=== PATIENT | female | born 1945 | race African-American/Black ===

== ENCOUNTER 2024-12-31 19:05 | Inpatient (IN) | payer MEDICARE, MEDICAID ==
[~2024-12-31] VITALS: Ht 165.1 cm; Wt 95.7 kg
[2024-12-31] MEDS: SODIUM CHLORIDE 0.9% 1,000 ML IV ONE (18:45)
[~2024-12-31 19:05] MED LIST: AMLO5TAB88 PO; ASPI-1160 PO; ATOR10TA69 PO; CLON0.1T PO; CLOP-31 PO; DIPH-909 PO; DORZ10DR8 EACHEYE; FAMO20TA8 MT; FURO20TA4 MT; HYDR-4001 MT; INSLIS SUBCUT; IPRA3AMP9 HHN; IPRA3AMP9 NEB; LACT10SO7 PO; LIP40 PO; LYR25 PO; METO-396 PO; MULT-1146 PO; MUPI15CR11 TP; P20 PO; POLY17PO43 MT; PULM25 NEB; SODI100047 MT
[2024-12-31 21:35] LABS: HEMATOCRIT. 35.1 % (36.0-48.0); HEMOGLOBIN. 10.8 g/dL (12.0-16.0); MEAN CORPUSCULAR HEMOGLOBIN 30.3 pg (28.0-32.0); MEAN CORPUSCULAR HGB CONC 30.8 g/dL (31.0-37.0); MEAN CORPUSCULAR VOLUME 98.2 fL (81.0-99.0); MEAN PLATELET VOLUME 9.8 fl (7.4-10.4); PLATELET 199 x1000/uL (130-400); RED BLOOD CELL COUNT 3.57 mill/uL (4.2-5.4); RED CELL DISTRIBUTION WIDTH 13.4 % (11.6-14.6); WHITE BLOOD COUNT 15.9 x1000/uL (4.5-11.0)
[2024-12-31 21:43] LABS: CHLORIDE 90 mEq/L (98-107); POTASSIUM 4.3 mEq/L (3.5-5.1); SODIUM 139 mEq/L (136-145)
[2024-12-31 21:44] LABS: CALCIUM 9.4 mg/dL (8.7-10.4)
[2024-12-31 21:45] LABS: DIFFERENTIAL COMMENT 1
[2024-12-31 21:49] LABS: GLUCOSE 111 mg/dL (70-105); TROPONIN I HIGH SENSITIVITY 19 ng/L (3.0-34); UREA NITROGEN BLOOD 17 mg/dL (9-23)
[2024-12-31 21:51] LABS: ALANINE AMINOTRANSFERASE 24 IU/L (10-49); ALBUMIN 3.7 g/dL (3.2-4.8); ASPARTATE AMINOTRANSFERASE 14 IU/L (<34); BILIRUBIN DIRECT 0.1 mg/dL (<=3.0); BILIRUBIN TOTAL 0.3 mg/dL (0.1-1.0); PROTEIN TOTAL 6.9 g/dL (6.0-8.3)
[2024-12-31 21:53] LABS: CARBON DIOXIDE > 40 mEq/L (21-32); CREATININE 0.5 mg/dL (0.6-1.0)
[2024-12-31] MEDS: CEFTRIAXONE 1GM/50ML 50 ML IV NR (22:05)
[2024-12-31] MEDS: AZITHROMYCIN 500MG/250ML 250 ML IV NR (22:45)
[2024-12-31 23:24] LABS: PLATELET ESTIMATE NORMAL
[2024-12-31] MEDS ORDERED: GUAIFENESIN 200MG/10ML SUGAR FREE UDC PO PRN (23:30)
[2024-12-31] MEDS ORDERED: ONDANSETRON HCL 4MG/2ML INJ IV PRN (23:30)
[2024-12-31] MEDS ORDERED: MAGNESIUM/ALUMINUM HYDROXIDE/SIMETHICONE 30ML UDC PO PRN (23:30)
[2024-12-31] MEDS ORDERED: ACETAMINOPHEN 325MG TABLET PO PRN ×2 (23:30)
[2024-12-31] MEDS ORDERED: HYDRALAZINE 20MG/ML VIAL IV PRN (23:45)
[2024-12-31] MEDS ORDERED: CEFTRIAXONE 1GM/50ML 50 ML IV SCH (23:45)
[2024-12-31] MEDS ORDERED: AZITHROMYCIN 500MG/250ML 250 ML IV SCH (23:45)
[2025-01-01] VITALS (12 sets, daily range): BP systolic 123–150; BP diastolic 89–113; PULSE 85–148; RESP 17–31; TEMP 36.5; O2SAT 95–98
[2025-01-01] MEDS: IPRATROPIUM/ALBUTEROL 0.5-3(2.5)MG/3ML NEB HHN SCH (00:15)
[2025-01-01] MEDS: SODIUM CHLORIDE 0.9% 1,000 ML IV SCH (01:03)
[2025-01-01 01:06] LABS: TROPONIN I HIGH SENSITIVITY 21 ng/L (3.0-34)
[2025-01-01 01:16] LABS: AMMONIA < 17 uMol/L (<32)
[2025-01-01 01:33] LABS: INR 1.1; PROTHROMBIN TIME 11.4 sec (9.6-11.0)
[2025-01-01 01:34] LABS: BG BASE EXCESS 7.1 mmol/L (-2.0-3.0); BG CARBOXYHEMOGLOBIN 0.7 % (0.5-1.5); BG HCO3 ACT 38.2 mmol/L (21.0-28.0); BG METHEMOGLOBIN 0.2 % (0.5-1.5); BG OXYGEN SATURATION 93.9 % (94.0-98.0); BG OXYHEMOGLOBIN 93.1 % (94.0-98.0); BG PCO2 100.4 mmHg (32.0-45.0); BG PH 7.198 (7.350-7.450); BG PO2 76.9 mmHg (83.0-108.0); BG SAMPLE SITE RIGHT RADIAL; BG TOTAL HEMOGLOBIN 11.7 g/dL (12.0-16.0); BG VENT MODE NASAL CANNULA
[2025-01-01 04:55] LABS: BG BASE EXCESS 12.2 mmol/L (-2.0-3.0); BG CARBOXYHEMOGLOBIN 0.7 % (0.5-1.5); BG DEOXYHEMOGLOBIN 3.9 % (0.0-5.0); BG FRACTION INSPIRED OXYGEN 40; BG HCO3 ACT 40.9 mmol/L (21.0-28.0); BG METHEMOGLOBIN 0.1 % (0.5-1.5); BG OXYGEN SATURATION 96.1 % (94.0-98.0); BG OXYHEMOGLOBIN 95.3 % (94.0-98.0); BG PCO2 78.4 mmHg (32.0-45.0); BG PH 7.335 (7.350-7.450); BG PO2 80.1 mmHg (83.0-108.0); BG SAMPLE SITE LEFT RADIAL; BG TOTAL HEMOGLOBIN 11.5 g/dL (12.0-16.0); BG VENT MODE MASK - BIPAP
[2025-01-01] MEDS: METHYLPREDNISOLONE SOD SUCC 40MG/ML (ACT-O-VIAL) IV SCH (05:31)
[2025-01-01 06:56] LABS: HEMATOCRIT. 35.6 % (36.0-48.0); HEMOGLOBIN. 11.1 g/dL (12.0-16.0); MEAN CORPUSCULAR HEMOGLOBIN 30.5 pg (28.0-32.0); MEAN CORPUSCULAR HGB CONC 31.1 g/dL (31.0-37.0); MEAN CORPUSCULAR VOLUME 98.2 fL (81.0-99.0); MEAN PLATELET VOLUME 9.8 fl (7.4-10.4); PLATELET 194 x1000/uL (130-400); RED BLOOD CELL COUNT 3.63 mill/uL (4.2-5.4); RED CELL DISTRIBUTION WIDTH 13.2 % (11.6-14.6); WHITE BLOOD COUNT 14.3 x1000/uL (4.5-11.0)
[2025-01-01 07:06] LABS: DIFFERENTIAL COMMENT 1
[2025-01-01 07:19] LABS: CHLORIDE 92 mEq/L (98-107); POTASSIUM 3.9 mEq/L (3.5-5.1); SODIUM 137 mEq/L (136-145); TROPONIN I HIGH SENSITIVITY 19 ng/L (3.0-34)
[2025-01-01 07:20] LABS: CALCIUM 9.2 mg/dL (8.7-10.4); FOLIC ACID (FOLATE) SERUM 3.75 ng/mL (>5.38); VITAMIN B12 SERUM 624 pg/mL (211-911)
[2025-01-01 07:23] LABS: THYROID STIMULATING HORMONE 0.35 uIU/mL (0.55-4.78)
[2025-01-01 07:24] LABS: IRON 53 ug/dL (50-170)
[2025-01-01 07:25] LABS: CREATININE 0.4 mg/dL (0.6-1.0); GLUCOSE 75 mg/dL (70-105); TRIGLYCERIDE 85 mg/dL (0-150); UREA NITROGEN BLOOD 17 mg/dL (9-23)
[2025-01-01 07:26] LABS: LDL CHOLESTEROL 73 mg/dL (5-100)
[2025-01-01 07:27] LABS: CHOLESTEROL 150 mg/dL (<200); CREATINE KINASE 46 IU/L (34-145); HDL CHOLESTEROL 53 mg/dL (>65); TOTAL IRON BINDING CAPACITY 256 ug/dl (250-425)
[2025-01-01 08:17] LABS: CARBON DIOXIDE > 40 mEq/L (21-32)
[2025-01-01] MEDS ORDERED: IPRATROPIUM BROMIDE (0.02%) 0.5MG/2.5ML NEB HHN PRN (08:30)
[2025-01-01] MEDS ORDERED: DEXTROSE 50% WATER 50ML SYRINGE IV PRN (08:30)
[2025-01-01] MEDS ORDERED: LACTULOSE 20G/30ML UDC PO PRN (08:30)
[2025-01-01] MEDS: ENOXAPARIN 40MG/0.4ML SYR SUBCUT SCH (09:00)
[2025-01-01] MEDS: FOLIC ACID/VITAMIN B COMP W-C TABLET PO SCH (09:00)
[2025-01-01] MEDS: METOPROLOL SUCCINATE 50MG ER TABLET PO SCH (09:00)
[2025-01-01] MEDS: FUROSEMIDE 20MG TABLET PO SCH (09:00)
[2025-01-01] MEDS: BLOOD SUGAR DIAGNOSTIC STRIP TEST SCH (09:00)
[2025-01-01] MEDS: ASPIRIN 81MG EC TABLET PO SCH (09:00)
[2025-01-01] MEDS: AMLODIPINE 5MG TABLET PO SCH (09:00)
[2025-01-01 10:48] LABS: BG BASE EXCESS 13.2 mmol/L (-2.0-3.0); BG CARBOXYHEMOGLOBIN 0.6 % (0.5-1.5); BG DEOXYHEMOGLOBIN 3.7 % (0.0-5.0); BG FRACTION INSPIRED OXYGEN 40; BG HCO3 ACT 41.3 mmol/L (21.0-28.0); BG OXYGEN SATURATION 96.3 % (94.0-98.0); BG OXYHEMOGLOBIN 95.7 % (94.0-98.0); BG PH 7.365 (7.350-7.450); BG SAMPLE SITE RIGHT RADIAL; BG TOTAL HEMOGLOBIN 11.2 g/dL (12.0-16.0); BG VENT MODE MASK - BIPAP
[2025-01-01] MEDS ORDERED: INSULIN LISPRO 100 UNITS/ML SUBCUT SCH (13:20)
[2025-01-01 13:26] LABS: PLATELET ESTIMATE NORMAL
[2025-01-01] MEDS: IPRATROPIUM BROMIDE (0.02%) 0.5MG/2.5ML NEB HHN SCH (14:16)
[2025-01-01 15:44] LABS: CREATINE KINASE 43 IU/L (34-145)
[2025-01-01 16:13] LABS: LACTATE DEHYDROGENASE 211 IU/L (120-246)
[2025-01-01 20:03] LABS: BG BASE EXCESS 8.5 mmol/L (-2.0-3.0); BG CARBOXYHEMOGLOBIN 0.6 % (0.5-1.5); BG DEOXYHEMOGLOBIN 2.8 % (0.0-5.0); BG FRACTION INSPIRED OXYGEN 40; BG HCO3 ACT 35.8 mmol/L (21.0-28.0); BG METHEMOGLOBIN 0.3 % (0.5-1.5); BG OXYGEN SATURATION 97.2 % (94.0-98.0); BG OXYHEMOGLOBIN 96.3 % (94.0-98.0); BG PCO2 63.5 mmHg (32.0-45.0); BG PH 7.369 (7.350-7.450); BG PO2 89.6 mmHg (83.0-108.0); BG SAMPLE SITE RIGHT BRACHIAL; BG TOTAL HEMOGLOBIN 11.8 g/dL (12.0-16.0); BG VENT MODE MASK - BIPAP
[2025-01-01] MEDS: FUROSEMIDE 40MG/4ML VIAL IV NR (21:52)
[2025-01-01] MEDS: DILTIAZEM HCL 5MG/ML 5ML VIAL IV NR (21:56)
[2025-01-01] MEDS: ATORVASTATIN CALCIUM 40MG TABLET PO SCH (22:11)
[2025-01-01] MEDS: CEFTRIAXONE 1GM/50ML 50 ML IV SCH (22:11)
[2025-01-01] MEDS: AZITHROMYCIN 500MG/250ML 250 ML IV SCH (22:12)
[2025-01-01] MEDS: METHYLPREDNISOLONE SOD SUCC 125MG/2ML (ACT-O-VIAL) IV SCH (22:26)
[2025-01-02] VITALS (16 sets, daily range): BP systolic 103–158; BP diastolic 44–135; PULSE 80–142; RESP 15–29; TEMP 36.1–36.7; O2SAT 89–100
[2025-01-02] MEDS ORDERED: CRAN250C MT (04:37)
[2025-01-02] MEDS ORDERED: PROT20 MT (04:37)
[2025-01-02] MEDS ORDERED: AMIN30LI2 PO (04:37)
[2025-01-02] MEDS ORDERED: TOPUD MT (04:37)
[2025-01-02] MEDS ORDERED: ASCO-339 MT (04:37)
[2025-01-02] MEDS ORDERED: MOM PO (04:37)
[2025-01-02] MEDS ORDERED: VITA1CAP PO (04:37)
[2025-01-02] MEDS ORDERED: DOCU100T MT (04:37)
[2025-01-02] MEDS ORDERED: ENOX40DI8 SQ (04:37)
[2025-01-02] MEDS ORDERED: MAG30ORA (04:37)
[2025-01-02] MEDS ORDERED: LACT1CAP68 MT (04:37)
[2025-01-02 07:32] LABS: HEMATOCRIT 34.5 % (36.0-48.0); HEMOGLOBIN 11.1 g/dL (12.0-16.0); MEAN CORPUSCULAR HGB CONC 32.3 g/dL (31.0-37.0); MEAN CORPUSCULAR VOLUME 95.9 fL (81.0-99.0); PLATELET 205 x1000/uL (130-400); RED CELL DISTRIBUTION WIDTH 13.4 % (11.6-14.6); WHITE BLOOD COUNT 9.9 x1000/uL (4.5-11.0)
[2025-01-02 07:41] LABS: CHLORIDE 91 mEq/L (98-107); POTASSIUM 4.5 mEq/L (3.5-5.1); SODIUM 138 mEq/L (136-145)
[2025-01-02 07:42] LABS: CALCIUM 9.2 mg/dL (8.7-10.4)
[2025-01-02 07:46] LABS: CREATININE 0.3 mg/dL (0.6-1.0); GLUCOSE 118 mg/dL (70-105)
[2025-01-02 07:47] LABS: UREA NITROGEN BLOOD 16 mg/dL (9-23)
[2025-01-02 07:49] LABS: PHOSPHORUS 2.5 mg/dL (2.5-4.9)
[2025-01-02 07:58] LABS: CARBON DIOXIDE > 40 mEq/L (21-32)
[2025-01-02] MEDS: FUROSEMIDE 40MG/4ML VIAL IVP SCH (09:10)
[2025-01-02] MEDS: AZITHROMYCIN 500MG/250ML 250 ML IV SCH (21:31)
[2025-01-02] MEDS: METOPROLOL SUCCINATE 50MG ER TABLET PO SCH (21:31)
[2025-01-02] MEDS: SACUBITRIL/VALSARTAN 24MG/26MG TABLET PO SCH (21:39)
[2025-01-02] MEDS: DEXT 5%/0.45% NACL 1000ML 1,000 ML IV SCH (21:41)
[2025-01-03] VITALS (16 sets, daily range): BP systolic 89–137; BP diastolic 45–116; PULSE 66–115; RESP 14–26; TEMP 36.1–36.6; O2SAT 93–99
[2025-01-03 07:27] LABS: HEMATOCRIT 33.5 % (36.0-48.0); HEMOGLOBIN 10.5 g/dL (12.0-16.0); MEAN CORPUSCULAR HEMOGLOBIN 30.8 pg (28.0-32.0); MEAN CORPUSCULAR HGB CONC 31.3 g/dL (31.0-37.0); MEAN CORPUSCULAR VOLUME 98.4 fL (81.0-99.0); PLATELET 196 x1000/uL (130-400); RED CELL DISTRIBUTION WIDTH 13.6 % (11.6-14.6); WHITE BLOOD COUNT 7.9 x1000/uL (4.5-11.0)
[2025-01-03 07:35] LABS: CALCIUM 9.2 mg/dL (8.7-10.4); CHLORIDE 93 mEq/L (98-107); POTASSIUM 4.2 mEq/L (3.5-5.1); SODIUM 139 mEq/L (136-145)
[2025-01-03 07:41] LABS: GLUCOSE 133 mg/dL (70-105)
[2025-01-03 07:42] LABS: UREA NITROGEN BLOOD 20 mg/dL (9-23)
[2025-01-03 07:44] LABS: PHOSPHORUS 2.8 mg/dL (2.5-4.9)
[2025-01-03] MEDS: SPIRONOLACTONE 25MG TABLET PO SCH (08:31)
[2025-01-03] MEDS: EMPAGLIFLOZIN 10MG TABLET PO SCH (08:32)
[2025-01-03 09:59] LABS: CARBON DIOXIDE > 40 mEq/L (21-32); CREATININE 0.4 mg/dL (0.6-1.0)
[2025-01-03 15:30] LABS: PROTEIN BODY FLUID 2.2 gm/dL
[2025-01-03] MEDS: LACTULOSE 20G/30ML UDC PO SCH (19:12)
[2025-01-03] MEDS: MIRTAZAPINE 15MG TABLET PO SCH (21:04)
[2025-01-03 23:45] LABS: BG BASE EXCESS 14.9 mmol/L (-2.0-3.0); BG CARBOXYHEMOGLOBIN 0.6 % (0.5-1.5); BG DEOXYHEMOGLOBIN 5.5 % (0.0-5.0); BG FRACTION INSPIRED OXYGEN 28; BG HCO3 ACT 45.1 mmol/L (21.0-28.0); BG METHEMOGLOBIN 0.3 % (0.5-1.5); BG OXYGEN SATURATION 94.5 % (94.0-98.0); BG OXYHEMOGLOBIN 93.6 % (94.0-98.0); BG PCO2 91.8 mmHg (32.0-45.0); BG PH 7.309 (7.350-7.450); BG PO2 69.8 mmHg (83.0-108.0); BG SAMPLE SITE RIGHT RADIAL; BG TOTAL HEMOGLOBIN 12.3 g/dL (12.0-16.0); BG VENT MODE NASAL CANNULA
[2025-01-04] VITALS (98 sets, daily range): BP systolic 61–153; BP diastolic 34–136; PULSE 76–134; RESP 12–25; TEMP 36.1–36.6; O2SAT 90–100
[2025-01-04 00:05] LABS: HEMATOCRIT. 40.6 % (36.0-48.0); HEMOGLOBIN. 12.4 g/dL (12.0-16.0); MEAN CORPUSCULAR HEMOGLOBIN 30.9 pg (28.0-32.0); MEAN CORPUSCULAR HGB CONC 30.5 g/dL (31.0-37.0); MEAN CORPUSCULAR VOLUME 101.3 fL (81.0-99.0); MEAN PLATELET VOLUME 9.6 fl (7.4-10.4); PLATELET 183 x1000/uL (130-400); RED BLOOD CELL COUNT 4.01 mill/uL (4.2-5.4); RED CELL DISTRIBUTION WIDTH 13.8 % (11.6-14.6); WHITE BLOOD COUNT 9.7 x1000/uL (4.5-11.0)
[2025-01-04 00:15] LABS: CARBON DIOXIDE 37 mEq/L (21-32); CHLORIDE 93 mEq/L (98-107); SODIUM 136 mEq/L (136-145)
[2025-01-04 00:16] LABS: CALCIUM 9.1 mg/dL (8.7-10.4)
[2025-01-04 00:20] LABS: DIFFERENTIAL COMMENT 1
[2025-01-04 00:21] LABS: CREATININE 0.5 mg/dL (0.6-1.0); GLUCOSE 135 mg/dL (70-105); TRIGLYCERIDE 98 mg/dL (0-150); UREA NITROGEN BLOOD 19 mg/dL (9-23)
[2025-01-04 00:22] LABS: ALANINE AMINOTRANSFERASE 24 IU/L (10-49); ASPARTATE AMINOTRANSFERASE 16 IU/L (<34); LDL CHOLESTEROL 87 mg/dL (5-100)
[2025-01-04 00:23] LABS: ALBUMIN 3.4 g/dL (3.2-4.8); BILIRUBIN TOTAL 0.4 mg/dL (0.1-1.0); CHOLESTEROL 163 mg/dL (<200); CREATINE KINASE 50 IU/L (34-145); HDL CHOLESTEROL 47 mg/dL (>65); PHOSPHORUS 3.5 mg/dL (2.5-4.9); PROTEIN TOTAL 6.4 g/dL (6.0-8.3)
[2025-01-04 00:59] LABS: BODY FLUID WBC 188 /cu mm (0-200)
[2025-01-04 01:00] LABS: BODY FLUID MONOCYTES 2 %; BODY FLUID RBC 158000 /cu mm (0-2000)
[2025-01-04 01:41] LABS: PROTHROMBIN TIME 10.9 sec (9.6-11.0)
[2025-01-04] MEDS ORDERED: NOREPINEPHRINE 8MG/250ML PMX 250 ML IV PRN (03:00)
[2025-01-04] MEDS: ALBUMIN HUMAN 25GM/500ML (5%) IV NR (03:47)
[2025-01-04] MEDS: SODIUM CHLORIDE 0.9% 1,000 ML IV SCH (03:48)
[2025-01-04] MEDS: CLOPIDOGREL 75MG TABLET PO SCH (03:49)
[2025-01-04] MEDS: ASPIRIN 81MG TABLET PO SCH (03:57)
[2025-01-04] MEDS ORDERED: IOHEXOL-350 100 ML BOTTLE ONE (05:55)
[2025-01-04 06:13] LABS: HEMATOCRIT 32.4 % (36.0-48.0); HEMOGLOBIN 10.1 g/dL (12.0-16.0); MEAN CORPUSCULAR HEMOGLOBIN 31.3 pg (28.0-32.0); MEAN CORPUSCULAR HGB CONC 31.2 g/dL (31.0-37.0); PLATELET 160 x1000/uL (130-400); RED BLOOD CELL COUNT 3.24 mill/uL (4.2-5.4); RED CELL DISTRIBUTION WIDTH 13.7 % (11.6-14.6); WHITE BLOOD COUNT 10.7 x1000/uL (4.5-11.0)
[2025-01-04 06:24] LABS: AMMONIA 40 uMol/L (<32)
[2025-01-04 06:26] LABS: CALCIUM 8.5 mg/dL (8.7-10.4); CHLORIDE 91 mEq/L (98-107); POTASSIUM 4.2 mEq/L (3.5-5.1); SODIUM 138 mEq/L (136-145)
[2025-01-04 06:31] LABS: CREATININE 0.4 mg/dL (0.6-1.0); GLUCOSE 140 mg/dL (70-105)
[2025-01-04 06:32] LABS: UREA NITROGEN BLOOD 25 mg/dL (9-23)
[2025-01-04 06:33] LABS: PHOSPHORUS 2.7 mg/dL (2.5-4.9)
[2025-01-04 06:44] LABS: CARBON DIOXIDE > 40 mEq/L (21-32)
[2025-01-04] MEDS: MAGNESIUM 2 G PREMIX 50 ML IV NR (08:50)
[2025-01-04] MEDS: LACTULOSE 20G/30ML UDC PO SCH (08:51)
[2025-01-04 09:58] LABS: BG BASE EXCESS 13.2 mmol/L (-2.0-3.0); BG CARBOXYHEMOGLOBIN 0.5 % (0.5-1.5); BG DEOXYHEMOGLOBIN 2.2 % (0.0-5.0); BG FRACTION INSPIRED OXYGEN 40; BG HCO3 ACT 42.8 mmol/L (21.0-28.0); BG METHEMOGLOBIN 0.3 % (0.5-1.5); BG OXYGEN SATURATION 97.8 % (94.0-98.0); BG PCO2 88.6 mmHg (32.0-45.0); BG PH 7.302 (7.350-7.450); BG PO2 99.7 mmHg (83.0-108.0); BG SAMPLE SITE RIGHT RADIAL; BG TOTAL HEMOGLOBIN 11.2 g/dL (12.0-16.0); BG TOTAL RESPIRATORY RATE 20 b/min; BG VENT MODE MASK - BIPAP
[2025-01-04] MEDS: MULTIVITAMINS,THER W-MINERALS TABLET PO SCH (10:30)
[2025-01-04] MEDS: ZINC SULFATE 220 MG ( 50 ) CAPSULE PO SCH (10:30)
[2025-01-04] MEDS: ASCORBIC ACID 250 MG TABLET PO SCH (10:30)
[2025-01-04] MEDS: ENOXAPARIN 80MG/0.8ML SYR SUBCUT SCH (10:31)
[2025-01-04 11:14] LABS: PLATELET ESTIMATE NORMAL
[2025-01-04] MEDS: PIPERACILLIN/TAZO 3.375G/50ML 50 ML IV SCH (17:29)
[2025-01-04] MEDS: VANCOMYCIN 1.5GM PMX (XELLIA) 300 ML IV NR (17:45)
[2025-01-04 18:48] LABS: BG BASE EXCESS 10.1 mmol/L (-2.0-3.0); BG CARBOXYHEMOGLOBIN 0.4 % (0.5-1.5); BG DEOXYHEMOGLOBIN 1.1 % (0.0-5.0); BG FRACTION INSPIRED OXYGEN 40; BG HCO3 ACT 38.9 mmol/L (21.0-28.0); BG METHEMOGLOBIN 0.3 % (0.5-1.5); BG OXYGEN SATURATION 98.9 % (94.0-98.0); BG OXYHEMOGLOBIN 98.2 % (94.0-98.0); BG PCO2 78.4 mmHg (32.0-45.0); BG PH 7.314 (7.350-7.450); BG PO2 129.8 mmHg (83.0-108.0); BG SAMPLE SITE RIGHT RADIAL; BG TOTAL HEMOGLOBIN 11.7 g/dL (12.0-16.0); BG TOTAL RESPIRATORY RATE 21 b/min; BG VENT MODE MASK - BIPAP
[2025-01-04] MEDS: METOPROLOL SUCCINATE 25MG ER TABLET PO SCH (22:06)
[2025-01-05] VITALS (59 sets, daily range): BP systolic 77–152; BP diastolic 39–131; PULSE 80–114; RESP 11–27; TEMP 36–37.6; O2SAT 96–100
[2025-01-05 05:33] LABS: CHLORIDE 94 mEq/L (98-107); SODIUM 140 mEq/L (136-145)
[2025-01-05 05:34] LABS: CALCIUM 8.6 mg/dL (8.7-10.4)
[2025-01-05 05:38] LABS: HEMATOCRIT. 34.1 % (36.0-48.0); HEMOGLOBIN. 10.4 g/dL (12.0-16.0); MEAN CORPUSCULAR HEMOGLOBIN 30.3 pg (28.0-32.0); MEAN CORPUSCULAR HGB CONC 30.5 g/dL (31.0-37.0); MEAN CORPUSCULAR VOLUME 99.3 fL (81.0-99.0); MEAN PLATELET VOLUME 9.8 fl (7.4-10.4); PLATELET 185 x1000/uL (130-400); RED BLOOD CELL COUNT 3.44 mill/uL (4.2-5.4); RED CELL DISTRIBUTION WIDTH 13.4 % (11.6-14.6); TROPONIN I HIGH SENSITIVITY 18 ng/L (3.0-34); WHITE BLOOD COUNT 11.8 x1000/uL (4.5-11.0)
[2025-01-05 05:39] LABS: CREATININE 0.5 mg/dL (0.6-1.0); GLUCOSE 133 mg/dL (70-105); UREA NITROGEN BLOOD 31 mg/dL (9-23)
[2025-01-05 05:41] LABS: PHOSPHORUS 2.8 mg/dL (2.5-4.9)
[2025-01-05] MEDS ORDERED: DILTIAZEM HCL 5MG/ML 5ML VIAL IV PRN (05:45)
[2025-01-05 06:01] LABS: CARBON DIOXIDE > 40 mEq/L (21-32)
[2025-01-05 07:16] LABS: DIFFERENTIAL COMMENT 1
[2025-01-05 09:12] LABS: PLATELET ESTIMATE NORMAL
[2025-01-05 11:40] LABS: BG BASE EXCESS 11.7 mmol/L (-2.0-3.0); BG CARBOXYHEMOGLOBIN 0.6 % (0.5-1.5); BG DEOXYHEMOGLOBIN 2.4 % (0.0-5.0); BG FRACTION INSPIRED OXYGEN 30; BG HCO3 ACT 40.3 mmol/L (21.0-28.0); BG METHEMOGLOBIN 0.3 % (0.5-1.5); BG OXYGEN SATURATION 97.6 % (94.0-98.0); BG OXYHEMOGLOBIN 96.7 % (94.0-98.0); BG PCO2 76.3 mmHg (32.0-45.0); BG PH 7.341 (7.350-7.450); BG PO2 93.2 mmHg (83.0-108.0); BG SAMPLE SITE LEFT RADIAL; BG TOTAL HEMOGLOBIN 11.9 g/dL (12.0-16.0); BG TOTAL RESPIRATORY RATE 21 b/min; BG VENT MODE MASK - BIPAP
[2025-01-05] MEDS: VANCOMYCIN 1GM PMX (XELLIA) 200 ML IV SCH (16:47)
[2025-01-06] VITALS (23 sets, daily range): BP systolic 69–137; BP diastolic 36–103; PULSE 58–100; RESP 9–34; TEMP 35.6–36.7; O2SAT 97–100
[2025-01-06] MEDS: MIDODRINE HCL 2.5MG TABLET PO NR (03:09)
[2025-01-06 06:59] LABS: HEMATOCRIT 34.8 % (36.0-48.0); HEMOGLOBIN 10.7 g/dL (12.0-16.0); MEAN CORPUSCULAR HEMOGLOBIN 30.7 pg (28.0-32.0); MEAN CORPUSCULAR HGB CONC 30.9 g/dL (31.0-37.0); MEAN CORPUSCULAR VOLUME 99.4 fL (81.0-99.0); PLATELET 167 x1000/uL (130-400); RED CELL DISTRIBUTION WIDTH 13.4 % (11.6-14.6)
[2025-01-06 07:05] LABS: CHLORIDE 96 mEq/L (98-107); POTASSIUM 4.3 mEq/L (3.5-5.1); SODIUM 142 mEq/L (136-145)
[2025-01-06 07:06] LABS: CALCIUM 8.5 mg/dL (8.7-10.4)
[2025-01-06 07:11] LABS: CREATININE 0.8 mg/dL (0.6-1.0); GLUCOSE 118 mg/dL (70-105); UREA NITROGEN BLOOD 41 mg/dL (9-23)
[2025-01-06] MEDS: FUROSEMIDE 40MG/4ML VIAL IVP SCH (09:00)
[2025-01-06 09:24] LABS: CARBON DIOXIDE > 40 mEq/L (21-32)
[2025-01-06] MEDS: MUPIROCIN 2% OINT 15GM NS SCH (10:24)
[2025-01-06] MEDS: SODIUM CHLORIDE 0.9% 1,000 ML IV ONE (10:24)
[2025-01-06 12:25] LABS: INR 1.1; PROTHROMBIN TIME 12.1 sec (9.6-11.0)
[2025-01-06 14:02] LABS: BG BASE EXCESS 9.3 mmol/L (-2.0-3.0); BG CARBOXYHEMOGLOBIN 0.4 % (0.5-1.5); BG FRACTION INSPIRED OXYGEN 28; BG HCO3 ACT 43.1 mmol/L (21.0-28.0); BG METHEMOGLOBIN 0.3 % (0.5-1.5); BG OXYHEMOGLOBIN 98.3 % (94.0-98.0); BG PCO2 141.2 mmHg (32.0-45.0); BG PH 7.103 (7.350-7.450); BG PO2 147.1 mmHg (83.0-108.0); BG SAMPLE SITE RIGHT RADIAL; BG TOTAL HEMOGLOBIN 11.7 g/dL (12.0-16.0); BG VENT MODE NASAL CANNULA
[2025-01-06 17:29] LABS: BG BASE EXCESS 8.2 mmol/L (-2.0-3.0); BG CARBOXYHEMOGLOBIN 0.4 % (0.5-1.5); BG DEOXYHEMOGLOBIN 3.1 % (0.0-5.0); BG FRACTION INSPIRED OXYGEN 30; BG METHEMOGLOBIN 0.3 % (0.5-1.5); BG OXYGEN SATURATION 96.9 % (94.0-98.0); BG OXYHEMOGLOBIN 96.2 % (94.0-98.0); BG PCO2 96.5 mmHg (32.0-45.0); BG PH 7.224 (7.350-7.450); BG PO2 87.8 mmHg (83.0-108.0); BG SAMPLE SITE RIGHT RADIAL; BG TOTAL HEMOGLOBIN 11.8 g/dL (12.0-16.0); BG VENT MODE MASK - BIPAP
[2025-01-06 20:32] LABS: BG BASE EXCESS 6.9 mmol/L (-2.0-3.0); BG CARBOXYHEMOGLOBIN 0.4 % (0.5-1.5); BG FRACTION INSPIRED OXYGEN 30; BG HCO3 ACT 36.3 mmol/L (21.0-28.0); BG METHEMOGLOBIN 0.3 % (0.5-1.5); BG OXYHEMOGLOBIN 96.3 % (94.0-98.0); BG PCO2 82.3 mmHg (32.0-45.0); BG PH 7.262 (7.350-7.450); BG PO2 90.4 mmHg (83.0-108.0); BG SAMPLE SITE RIGHT RADIAL; BG TOTAL HEMOGLOBIN 11.4 g/dL (12.0-16.0); BG VENT MODE MASK - BIPAP
[2025-01-07] VITALS (22 sets, daily range): BP systolic 76–130; BP diastolic 32–107; PULSE 60–79; RESP 12–66; TEMP 34.4–35.61396; O2SAT 96–100
[2025-01-07 06:35] LABS: CHLORIDE 99 mEq/L (98-107); POTASSIUM 4.4 mEq/L (3.5-5.1); SODIUM 141 mEq/L (136-145)
[2025-01-07 06:36] LABS: CALCIUM 8.6 mg/dL (8.7-10.4); CARBON DIOXIDE 32 mEq/L (21-32)
[2025-01-07 06:41] LABS: GLUCOSE 118 mg/dL (70-105); UREA NITROGEN BLOOD 40 mg/dL (9-23)
[2025-01-07 06:42] LABS: HEMATOCRIT 34.3 % (36.0-48.0); HEMOGLOBIN 10.6 g/dL (12.0-16.0); MEAN CORPUSCULAR HEMOGLOBIN 31.2 pg (28.0-32.0); MEAN CORPUSCULAR HGB CONC 30.9 g/dL (31.0-37.0); MEAN CORPUSCULAR VOLUME 101.1 fL (81.0-99.0); PLATELET 146 x1000/uL (130-400); RED BLOOD CELL COUNT 3.39 mill/uL (4.2-5.4); RED CELL DISTRIBUTION WIDTH 13.7 % (11.6-14.6); WHITE BLOOD COUNT 18.5 x1000/uL (4.5-11.0)
[2025-01-07 08:08] LABS: BG BASE EXCESS 2.4 mmol/L (-2.0-3.0); BG CARBOXYHEMOGLOBIN 0.5 % (0.5-1.5); BG DEOXYHEMOGLOBIN 2.3 % (0.0-5.0); BG FRACTION INSPIRED OXYGEN 30; BG HCO3 ACT 31.7 mmol/L (21.0-28.0); BG METHEMOGLOBIN 0.1 % (0.5-1.5); BG OXYGEN SATURATION 97.7 % (94.0-98.0); BG OXYHEMOGLOBIN 97.1 % (94.0-98.0); BG PCO2 79.8 mmHg (32.0-45.0); BG PH 7.217 (7.350-7.450); BG PO2 102.8 mmHg (83.0-108.0); BG SAMPLE SITE RIGHT RADIAL; BG TOTAL HEMOGLOBIN 10.3 g/dL (12.0-16.0); BG VENT MODE MASK - BIPAP
[2025-01-07] MEDS: METOPROLOL SUCCINATE 25MG ER TABLET PO SCH (09:00)
[2025-01-07] MEDS: METHYLPREDNISOLONE SOD SUCC 125MG/2ML (ACT-O-VIAL) IV SCH (09:12)
[2025-01-07] MEDS ORDERED: LIDOCAINE HCL 1% 10 MG/ML 10ML VIAL ONE (09:59)
[2025-01-07] MEDS: PROTAMINE SULFATE 10MG/ML VIAL 25ML IV SCH (12:15)
[2025-01-07] MEDS: IPRATROPIUM BROMIDE (0.02%) 0.5MG/2.5ML NEB HHN SCH (12:33)
[2025-01-07] MEDS: MIDODRINE HCL 5MG TABLET PO SCH ×2 (14:12→21:22)
[2025-01-07 16:17] LABS: HEMATOCRIT 29.1 % (36.0-48.0); HEMOGLOBIN 8.9 g/dL (12.0-16.0); MEAN CORPUSCULAR HEMOGLOBIN 30.5 pg (28.0-32.0); MEAN CORPUSCULAR HGB CONC 30.6 g/dL (31.0-37.0); MEAN CORPUSCULAR VOLUME 99.5 fL (81.0-99.0); PLATELET 155 x1000/uL (130-400); RED BLOOD CELL COUNT 2.93 mill/uL (4.2-5.4); RED CELL DISTRIBUTION WIDTH 13.6 % (11.6-14.6); WHITE BLOOD COUNT 17.3 x1000/uL (4.5-11.0)
[2025-01-07 16:25] LABS: INR 1.1; PROTHROMBIN TIME 12.1 sec (9.6-11.0)
[2025-01-07] MEDS: PANTOPRAZOLE SODIUM 40 MG/VIAL IV SCH (21:07)
[2025-01-07] MEDS: ALBUMIN HUMAN 12.5GM/50ML (25%) IV NR (21:45)
[2025-01-08] VITALS (61 sets, daily range): BP systolic 75–145; BP diastolic 30–113; PULSE 62–133; RESP 14–32; TEMP 33.3–36.9; O2SAT 92–100
[2025-01-08 01:53] LABS: HEMATOCRIT 28.5 % (36.0-48.0); HEMOGLOBIN 8.9 g/dL (12.0-16.0); MEAN CORPUSCULAR HEMOGLOBIN 30.5 pg (28.0-32.0); MEAN CORPUSCULAR HGB CONC 31.1 g/dL (31.0-37.0); MEAN CORPUSCULAR VOLUME 97.9 fL (81.0-99.0); PLATELET 119 x1000/uL (130-400); RED BLOOD CELL COUNT 2.91 mill/uL (4.2-5.4); RED CELL DISTRIBUTION WIDTH 14.6 % (11.6-14.6); WHITE BLOOD COUNT 25.5 x1000/uL (4.5-11.0)
[2025-01-08 02:10] LABS: LACTATE DEHYDROGENASE 143 IU/L (120-246)
[2025-01-08 02:28] LABS: D-DIMER 0.25 mg/L FEU (<0.50); PARTIAL THROMBOPLASTIN TIME 40.2 sec (23.4-31.0); PROTHROMBIN TIME 11.1 sec (9.6-11.0)
[2025-01-08] MEDS: VASOPRESSIN 20 UNITS in SODIUM CHLORIDE 0.9% 100 ML IV PRN (02:40)
[2025-01-08] MEDS: NOREPINEPHRINE 8MG/250ML PMX 250 ML IV PRN (02:45)
[2025-01-08 05:21] LABS: HEMATOCRIT 28.6 % (36.0-48.0); HEMOGLOBIN 8.9 g/dL (12.0-16.0); MEAN CORPUSCULAR HEMOGLOBIN 30.6 pg (28.0-32.0); MEAN CORPUSCULAR HGB CONC 31.2 g/dL (31.0-37.0); MEAN CORPUSCULAR VOLUME 98.3 fL (81.0-99.0); PLATELET 133 x1000/uL (130-400); RED BLOOD CELL COUNT 2.91 mill/uL (4.2-5.4); RED CELL DISTRIBUTION WIDTH 14.3 % (11.6-14.6); WHITE BLOOD COUNT 38.1 x1000/uL (4.5-11.0)
[2025-01-08 05:38] LABS: ALANINE AMINOTRANSFERASE 29 IU/L (10-49); ASPARTATE AMINOTRANSFERASE 16 IU/L (<34); BILIRUBIN DIRECT 0.2 mg/dL (<=3.0); BILIRUBIN TOTAL 0.4 mg/dL (0.1-1.0); CARBON DIOXIDE 35 mEq/L (21-32); GLUCOSE 155 mg/dL (70-105); IRON 96 ug/dL (50-170); UREA NITROGEN BLOOD 56 mg/dL (9-23)
[2025-01-08 05:39] LABS: TOTAL IRON BINDING CAPACITY 191 ug/dl (250-425)
[2025-01-08 05:41] LABS: FERRITIN 129 ng/mL (10-291)
[2025-01-08 05:42] LABS: VITAMIN B12 SERUM 1361 pg/mL (211-911)
[2025-01-08 05:53] LABS: BG BASE EXCESS -0.4 mmol/L (-2.0-3.0); BG CARBOXYHEMOGLOBIN 0.9 % (0.5-1.5); BG DEOXYHEMOGLOBIN 3.4 % (0.0-5.0); BG FRACTION INSPIRED OXYGEN 30; BG HCO3 ACT 28.1 mmol/L (21.0-28.0); BG METHEMOGLOBIN 0.1 % (0.5-1.5); BG OXYGEN SATURATION 96.6 % (94.0-98.0); BG OXYHEMOGLOBIN 95.6 % (94.0-98.0); BG PCO2 68.7 mmHg (32.0-45.0); BG PH 7.229 (7.350-7.450); BG PO2 84.6 mmHg (83.0-108.0); BG SAMPLE SITE LEFT FEMORAL; BG TOTAL HEMOGLOBIN 9.7 g/dL (12.0-16.0); BG VENT MODE MASK - BIPAP
[2025-01-08 06:05] LABS: CREATININE 1.4 mg/dL (0.6-1.0)
[2025-01-08 09:13] LABS: BG CARBOXYHEMOGLOBIN 1.2 % (0.5-1.5); BG DEOXYHEMOGLOBIN 2.9 % (0.0-5.0); BG FRACTION INSPIRED OXYGEN 30; BG HCO3 ACT 27.8 mmol/L (21.0-28.0); BG METHEMOGLOBIN 0.3 % (0.5-1.5); BG OXYGEN SATURATION 97.1 % (94.0-98.0); BG OXYHEMOGLOBIN 95.6 % (94.0-98.0); BG PCO2 61.7 mmHg (32.0-45.0); BG PH 7.271 (7.350-7.450); BG PO2 86.9 mmHg (83.0-108.0); BG SAMPLE SITE RIGHT RADIAL; BG TOTAL HEMOGLOBIN 10.9 g/dL (12.0-16.0); BG VENT MODE MASK - BIPAP
[2025-01-08] MEDS ORDERED: VANCOMYCIN 1GM PMX (XELLIA) 200 ML IV SCH (12:00)
[2025-01-08] MEDS ORDERED: VANCOMYCIN 1000MG/250ML 250 ML IV SCH (12:00)
[2025-01-08 12:45] LABS: CHLORIDE 96 mEq/L (98-107); POTASSIUM 4.3 mEq/L (3.5-5.1); SODIUM 142 mEq/L (136-145)
[2025-01-08 12:47] LABS: CALCIUM 9.1 mg/dL (8.7-10.4)
[2025-01-08] MEDS ORDERED: VANCOMYCIN 1G PREMIX 200 ML IV SCH (12:59)
[2025-01-08] MEDS: VANCOMYCIN 1G PREMIX 200 ML IV SCH (15:16)
[2025-01-09] VITALS (102 sets, daily range): BP systolic 88–169; BP diastolic 22–138; PULSE 77–154; RESP 14–30; TEMP 36.44736–37.7; O2SAT 89–100
[2025-01-09 05:29] LABS: AMMONIA < 17 uMol/L (<32)
[2025-01-09 05:54] LABS: HEMATOCRIT. 22.5 % (36.0-48.0); HEMOGLOBIN. 7.2 g/dL (12.0-16.0); MEAN CORPUSCULAR HEMOGLOBIN 30.4 pg (28.0-32.0); MEAN CORPUSCULAR HGB CONC 32.2 g/dL (31.0-37.0); MEAN CORPUSCULAR VOLUME 94.4 fL (81.0-99.0); MEAN PLATELET VOLUME 10.4 fl (7.4-10.4); PLATELET 97 x1000/uL (130-400); RED BLOOD CELL COUNT 2.38 mill/uL (4.2-5.4); RED CELL DISTRIBUTION WIDTH 14.2 % (11.6-14.6)
[2025-01-09 05:59] LABS: CHLORIDE 100 mEq/L (98-107); POTASSIUM 4.4 mEq/L (3.5-5.1); SODIUM 143 mEq/L (136-145)
[2025-01-09 06:02] LABS: CALCIUM 8.6 mg/dL (8.7-10.4); CARBON DIOXIDE 32 mEq/L (21-32)
[2025-01-09 06:07] LABS: GLUCOSE 189 mg/dL (70-105); UREA NITROGEN BLOOD 68 mg/dL (9-23)
[2025-01-09 06:08] LABS: LACTATE DEHYDROGENASE 223 IU/L (120-246)
[2025-01-09 06:09] LABS: ALANINE AMINOTRANSFERASE 33 IU/L (10-49); ALBUMIN 2.8 g/dL (3.2-4.8); ASPARTATE AMINOTRANSFERASE 21 IU/L (<34); BILIRUBIN DIRECT 0.2 mg/dL (<=3.0); BILIRUBIN TOTAL 0.4 mg/dL (0.1-1.0); PROTEIN TOTAL 4.6 g/dL (6.0-8.3)
[2025-01-09 06:41] LABS: DIFFERENTIAL COMMENT 1
[2025-01-09 06:43] LABS: WHITE BLOOD COUNT 52.7 x1000/uL (4.5-11.0)
[2025-01-09] MEDS: BUDESONIDE 0.5MG/2ML NEB HHN SCH (09:01)
[2025-01-09 10:28] LABS: BG BASE EXCESS 4.3 mmol/L (-2.0-3.0); BG CARBOXYHEMOGLOBIN 0.3 % (0.5-1.5); BG FRACTION INSPIRED OXYGEN 30; BG HCO3 ACT 30.4 mmol/L (21.0-28.0); BG METHEMOGLOBIN 0.3 % (0.5-1.5); BG OXYHEMOGLOBIN 96.4 % (94.0-98.0); BG PCO2 55.1 mmHg (32.0-45.0); BG PH 7.359 (7.350-7.450); BG PO2 92.7 mmHg (83.0-108.0); BG SAMPLE SITE RIGHT RADIAL; BG TOTAL HEMOGLOBIN 7.4 g/dL (12.0-16.0); BG VENT MODE MASK - BIPAP
[2025-01-09] MEDS: PHENYLEPHRINE 50MG/250ML PMX 250 ML IV PRN (10:58)
[2025-01-09 14:45] LABS: HEMATOCRIT 21.7 % (36.0-48.0)
[2025-01-09 15:50] LABS: HEMOGLOBIN 6.4 g/dL (12.0-16.0)
[2025-01-09] MEDS: INSULIN LISPRO 100 UNITS/ML SUBCUT SCH (16:31)
[2025-01-09] MEDS: CEFEPIME 1GM/50ML 50 ML IV SCH (17:37)
[2025-01-09 18:35] LABS: PLATELET ESTIMATE SLIGHTLY DECREASED
[2025-01-09 18:36] LABS: ANISOCYTOSIS 1+
[2025-01-09] MEDS: METRONIDAZOLE 500MG TABLET PO SCH (22:30)
[2025-01-10] VITALS (108 sets, daily range): BP systolic 87–156; BP diastolic 14–119; PULSE 75–118; RESP 15–36; TEMP 35.2–37.1; O2SAT 90–100
[2025-01-10 00:21] LABS: HEMATOCRIT 25.5 % (36.0-48.0); HEMOGLOBIN 8.1 g/dL (12.0-16.0)
[2025-01-10 07:43] LABS: HEMATOCRIT 23.3 % (36.0-48.0); HEMOGLOBIN 7.6 g/dL (12.0-16.0); MEAN CORPUSCULAR HEMOGLOBIN 30.6 pg (28.0-32.0); MEAN CORPUSCULAR HGB CONC 32.8 g/dL (31.0-37.0); MEAN CORPUSCULAR VOLUME 93.3 fL (81.0-99.0); PLATELET 78 x1000/uL (130-400); RED CELL DISTRIBUTION WIDTH 14.7 % (11.6-14.6)
[2025-01-10 07:50] LABS: CHLORIDE 98 mEq/L (98-107); POTASSIUM 4.4 mEq/L (3.5-5.1); SODIUM 144 mEq/L (136-145)
[2025-01-10 07:56] LABS: CARBON DIOXIDE 30 mEq/L (21-32)
[2025-01-10 07:59] LABS: CALCIUM 8.4 mg/dL (8.7-10.4)
[2025-01-10 08:00] LABS: ALANINE AMINOTRANSFERASE 46 IU/L (10-49); ALBUMIN 2.9 g/dL (3.2-4.8)
[2025-01-10 08:04] LABS: GLUCOSE 122 mg/dL (70-105)
[2025-01-10 08:05] LABS: ASPARTATE AMINOTRANSFERASE 31 IU/L (<34); UREA NITROGEN BLOOD 83 mg/dL (9-23)
[2025-01-10 08:07] LABS: BILIRUBIN TOTAL 0.5 mg/dL (0.1-1.0)
[2025-01-10 08:45] LABS: CREATININE 2.7 mg/dL (0.6-1.0)
[2025-01-10 09:10] LABS: IMMUNOGLOBULIN A 255 mg/dL (64-422); IMMUNOGLOBULIN G 467 mg/dL (586-1602); IMMUNOGLOBULIN M 43 mg/dL (26-217)
[2025-01-10 11:59] LABS: CREATINE KINASE 83 IU/L (34-145)
[2025-01-10 15:05] LABS: WHITE BLOOD COUNT 54.4 x1000/uL (4.5-11.0)
[2025-01-10] MEDS ORDERED: VANCOMYCIN HCL 1GM VIAL PO SCH (18:00)
[2025-01-10] MEDS: VANCOMYCIN 125MG/2.5ML ORAL SYR PO SCH (18:54)
[2025-01-10 19:41] LABS: CLARITY URINE TURBID (CLEAR); COLOR URINE DARK YELLOW (YELLOW); GLUCOSE URINE NEGATIVE (NEGATIVE); KETONES URINE TRACE (NEGATIVE); LEUKOCYTE ESTERASE URINE 2+ (NEGATIVE); NITRITE URINE NEGATIVE (NEGATIVE); OCCULT BLOOD URINE 2+ (NEGATIVE); PROTEIN URINE 2+ (NEGATIVE); SPECIFIC GRAVITY URINE 1.031 (1.005-1.030); UROBILINOGEN URINE 0.2 E.U./dL (0.2-1.0)
[2025-01-10] MEDS: CEFEPIME 1GM/50ML 50 ML IV SCH (20:58)
[2025-01-10 21:20] LABS: BACTERIA URINE 4+
[2025-01-10 21:21] LABS: SQUAMOUS EPITHELIAL CELL URINE 1+ /lpf (RARE/1+); YEAST URINE 2+
[2025-01-11] VITALS (99 sets, daily range): BP systolic 74–160; BP diastolic 28–138; PULSE 80–125; RESP 16–44; TEMP 36.3–37.2252; O2SAT 100
[2025-01-11 07:20] LABS: HEMATOCRIT. 21.7 % (36.0-48.0); MEAN CORPUSCULAR HEMOGLOBIN 30.5 pg (28.0-32.0); MEAN CORPUSCULAR HGB CONC 31.5 g/dL (31.0-37.0); MEAN CORPUSCULAR VOLUME 96.8 fL (81.0-99.0); PLATELET 71 x1000/uL (130-400); RED BLOOD CELL COUNT 2.24 mill/uL (4.2-5.4); RED CELL DISTRIBUTION WIDTH 16.1 % (11.6-14.6)
[2025-01-11 07:47] LABS: DIFFERENTIAL COMMENT 1
[2025-01-11 07:54] LABS: HEMOGLOBIN. 6.8 g/dL (12.0-16.0); WHITE BLOOD COUNT 42.5 x1000/uL (4.5-11.0)
[2025-01-11 08:43] LABS: POTASSIUM 4.3 mEq/L (3.5-5.1)
[2025-01-11 08:45] LABS: CALCIUM 8.5 mg/dL (8.7-10.4)
[2025-01-11 09:10] LABS: IMMUNOGLOBULIN A 256 mg/dL (64-422); IMMUNOGLOBULIN G 457 mg/dL (586-1602); IMMUNOGLOBULIN M 41 mg/dL (26-217)
[2025-01-11 11:57] LABS: ANISOCYTOSIS 1+
[2025-01-11 11:58] LABS: HYPOCHROMASIA 1+; PLATELET ESTIMATE DECREASED
[2025-01-11 20:19] LABS: HEMATOCRIT 29.8 % (36.0-48.0); HEMOGLOBIN 8.7 g/dL (12.0-16.0)
[2025-01-12] VITALS (98 sets, daily range): BP systolic 83–150; BP diastolic 29–95; PULSE 63–127; RESP 13–36; TEMP 36.3–37.2; O2SAT 94–100
[2025-01-12 05:11] LABS: HEMATOCRIT. 24.8 % (36.0-48.0); HEMOGLOBIN. 7.8 g/dL (12.0-16.0); MEAN CORPUSCULAR HEMOGLOBIN 29.5 pg (28.0-32.0); MEAN CORPUSCULAR HGB CONC 31.6 g/dL (31.0-37.0); MEAN CORPUSCULAR VOLUME 93.3 fL (81.0-99.0); MEAN PLATELET VOLUME 10.9 fl (7.4-10.4); PLATELET 73 x1000/uL (130-400); RED BLOOD CELL COUNT 2.65 mill/uL (4.2-5.4); RED CELL DISTRIBUTION WIDTH 18.6 % (11.6-14.6); WHITE BLOOD COUNT 34.1 x1000/uL (4.5-11.0)
[2025-01-12 05:25] LABS: POTASSIUM 4.1 mEq/L (3.5-5.1)
[2025-01-12 05:26] LABS: CALCIUM 8.6 mg/dL (8.7-10.4)
[2025-01-12 05:31] LABS: CREATININE 3.2 mg/dL (0.6-1.0)
[2025-01-12 07:32] LABS: DIFFERENTIAL COMMENT 1
[2025-01-12] MEDS ORDERED: ETOMIDATE 2MG/ML 10ML VIAL IV ONE (07:39)
[2025-01-12 10:43] LABS: BG CARBOXYHEMOGLOBIN 0.7 % (0.5-1.5); BG DEOXYHEMOGLOBIN 1.7 % (0.0-5.0); BG FRACTION INSPIRED OXYGEN 50; BG HCO3 ACT 28.1 mmol/L (21.0-28.0); BG OXYGEN SATURATION 98.3 % (94.0-98.0); BG OXYHEMOGLOBIN 97.6 % (94.0-98.0); BG PCO2 78.7 mmHg (32.0-45.0); BG PO2 112.3 mmHg (83.0-108.0); BG SAMPLE SITE RIGHT RADIAL; BG TOTAL HEMOGLOBIN 8.1 g/dL (12.0-16.0); BG VENT MODE HIGH FLOW
[2025-01-12] MEDS ORDERED: LIDOCAINE HCL 1% 10 MG/ML 10ML VIAL ONE (11:26)
[2025-01-12] MEDS ORDERED: HEPARIN 1000 UNITS/ML 10ML ONE (11:27)
[2025-01-12 11:45] LABS: HEPATITIS B SURFACE ANTIGEN NEGATIVE (Negative)
[2025-01-12 12:04] LABS: HEPATITIS A AB IGM NEGATIVE (Negative)
[2025-01-12 12:06] LABS: HEPATITIS B CORE AB IGM NEGATIVE (Negative); HEPATITIS C AB NON REACTIVE (Neg) (Negative)
[2025-01-12 12:38] LABS: PROTHROMBIN TIME 10.3 sec (9.6-11.0)
[2025-01-12] MEDS: DEXT 5%/0.9% NACL 1,000 ML IV SCH (13:25)
[2025-01-12 13:34] LABS: ANISOCYTOSIS 2+; PLATELET ESTIMATE DECREASED
[2025-01-12] MEDS: IPRATROPIUM BROMIDE (0.02%) 0.5MG/2.5ML NEB HHN PRN (14:10)
[2025-01-12 14:42] LABS: BG BASE EXCESS -3.7 mmol/L (-2.0-3.0); BG CARBOXYHEMOGLOBIN 0.8 % (0.5-1.5); BG DEOXYHEMOGLOBIN 1.1 % (0.0-5.0); BG FRACTION INSPIRED OXYGEN 40; BG OXYGEN SATURATION 98.9 % (94.0-98.0); BG OXYHEMOGLOBIN 98.1 % (94.0-98.0); BG PCO2 30.4 mmHg (32.0-45.0); BG PH 7.435 (7.350-7.450); BG PO2 110.8 mmHg (83.0-108.0); BG SAMPLE SITE RIGHT RADIAL; BG TOTAL HEMOGLOBIN 8.2 g/dL (12.0-16.0); BG VENT MODE VENT - AC
[2025-01-12] MEDS: PROPOFOL 10MG/ML 100ML 100 ML IV SCH (14:42)
[2025-01-12 15:12] LABS: HEMATOCRIT 24.4 % (36.0-48.0); HEMOGLOBIN 7.6 g/dL (12.0-16.0)
[2025-01-12] MEDS: IPRATROPIUM BROMIDE (0.02%) 0.5MG/2.5ML NEB HHN SCH (20:23)
[2025-01-12] MEDS: AMIODARONE 200MG TABLET PO SCH (20:39)
[2025-01-13] VITALS (111 sets, daily range): BP systolic 83–158; BP diastolic 30–119; PULSE 74–123; RESP 14–27; TEMP 36.2–36.6; O2SAT 98–100
[2025-01-13] MEDS: PROPOFOL 10MG/ML 100ML 100 ML IV PRN (00:51)
[2025-01-13 06:00] LABS: HEMATOCRIT. 23.1 % (36.0-48.0); HEMOGLOBIN. 7.5 g/dL (12.0-16.0); MEAN CORPUSCULAR HEMOGLOBIN 29.3 pg (28.0-32.0); MEAN CORPUSCULAR HGB CONC 32.4 g/dL (31.0-37.0); MEAN CORPUSCULAR VOLUME 90.4 fL (81.0-99.0); MEAN PLATELET VOLUME 11.2 fl (7.4-10.4); PLATELET 68 x1000/uL (130-400); RED BLOOD CELL COUNT 2.56 mill/uL (4.2-5.4); WHITE BLOOD COUNT 28.7 x1000/uL (4.5-11.0)
[2025-01-13 06:12] LABS: CARBON DIOXIDE 23 mEq/L (21-32); CHLORIDE 100 mEq/L (98-107); POTASSIUM 3.2 mEq/L (3.5-5.1); SODIUM 143 mEq/L (136-145)
[2025-01-13 06:13] LABS: CALCIUM 8.8 mg/dL (8.7-10.4)
[2025-01-13 06:17] LABS: CREATININE 2.9 mg/dL (0.6-1.0); GLUCOSE 112 mg/dL (70-105)
[2025-01-13 06:18] LABS: TRIGLYCERIDE 95 mg/dL (0-150); UREA NITROGEN BLOOD 72 mg/dL (9-23)
[2025-01-13 06:20] LABS: PHOSPHORUS 2.8 mg/dL (2.5-4.9)
[2025-01-13 07:28] LABS: DIFFERENTIAL COMMENT 1
[2025-01-13] MEDS: POTASSIUM CHLORIDE 20MEQ/PACKET PO NR (08:32)
[2025-01-13 09:13] LABS: BG BASE EXCESS 1.7 mmol/L (-2.0-3.0); BG CARBOXYHEMOGLOBIN 0.2 % (0.5-1.5); BG DEOXYHEMOGLOBIN 0.9 % (0.0-5.0); BG FRACTION INSPIRED OXYGEN 40; BG HCO3 ACT 23.8 mmol/L (21.0-28.0); BG METHEMOGLOBIN 0.3 % (0.5-1.5); BG OXYGEN SATURATION 99.1 % (94.0-98.0); BG OXYHEMOGLOBIN 98.6 % (94.0-98.0); BG PCO2 27.4 mmHg (32.0-45.0); BG PH 7.556 (7.350-7.450); BG SAMPLE SITE RIGHT BRACHIAL; BG TOTAL HEMOGLOBIN 7.6 g/dL (12.0-16.0); BG VENT MODE VENT - AC
[2025-01-13 11:15] LABS: ANISOCYTOSIS 2+; PLATELET ESTIMATE DECREASED
[2025-01-13] MEDS: PHENYLEPHRINE 100 MG in DEXT 5% WATER 240 ML IV PRN (13:13)
[2025-01-14] VITALS (119 sets, daily range): BP systolic 54–132; BP diastolic 22–101; PULSE 81–137; RESP 14–25; TEMP 36.1–36.55848; O2SAT 95–100
[2025-01-14] MEDS ORDERED: PROPOFOL 10MG/ML 100ML 100 ML IV PRN (04:30)
[2025-01-14 09:07] LABS: HEMATOCRIT 24.5 % (36.0-48.0); HEMOGLOBIN 7.8 g/dL (12.0-16.0); MEAN CORPUSCULAR HEMOGLOBIN 28.8 pg (28.0-32.0); MEAN CORPUSCULAR HGB CONC 31.7 g/dL (31.0-37.0); PLATELET 90 x1000/uL (130-400); RED CELL DISTRIBUTION WIDTH 18.6 % (11.6-14.6)
[2025-01-14 09:21] LABS: WHITE BLOOD COUNT 40.6 x1000/uL (4.5-11.0)
[2025-01-14 09:41] LABS: CARBON DIOXIDE 19 mEq/L (21-32); CHLORIDE 103 mEq/L (98-107); POTASSIUM 3.1 mEq/L (3.5-5.1); SODIUM 139 mEq/L (136-145)
[2025-01-14 09:42] LABS: CALCIUM 8.8 mg/dL (8.7-10.4)
[2025-01-14 09:46] LABS: CREATININE 2.9 mg/dL (0.6-1.0); GLUCOSE 138 mg/dL (70-105)
[2025-01-14 09:47] LABS: UREA NITROGEN BLOOD 70 mg/dL (9-23)
[2025-01-14 09:49] LABS: PHOSPHORUS 2.6 mg/dL (2.5-4.9)
[2025-01-14 11:45] LABS: BG BASE EXCESS -0.6 mmol/L (-2.0-3.0); BG DEOXYHEMOGLOBIN 1.1 % (0.0-5.0); BG FRACTION INSPIRED OXYGEN 40; BG HCO3 ACT 23.5 mmol/L (21.0-28.0); BG METHEMOGLOBIN 0.3 % (0.5-1.5); BG OXYGEN SATURATION 98.9 % (94.0-98.0); BG OXYHEMOGLOBIN 97.6 % (94.0-98.0); BG PCO2 35.5 mmHg (32.0-45.0); BG PH 7.438 (7.350-7.450); BG PO2 129.7 mmHg (83.0-108.0); BG SAMPLE SITE LEFT RADIAL; BG TOTAL HEMOGLOBIN 7.7 g/dL (12.0-16.0); BG VENT MODE VENT - AC
[2025-01-14] MEDS: POTASSIUM CHLORIDE 20MEQ/PACKET PO NR (12:21)
[2025-01-14] MEDS: MEROPENEM 500MG/50ML 50 ML IV SCH (15:24)
[2025-01-14] MEDS: MIDODRINE HCL 5MG TABLET PO SCH (21:54)
[2025-01-14] MEDS: ALBUMIN HUMAN 25GM/100ML (25%) IV SCH (22:08)
[2025-01-14] MEDS: AMIODARONE 150MG/100ML D5W 100 ML IV NR (22:09)
[2025-01-14] MEDS: BLOOD SUGAR DIAGNOSTIC STRIP TEST SCH (23:02)
[2025-01-14] MEDS: INSULIN LISPRO 100 UNITS/ML SUBCUT SCH (23:35)
[2025-01-15] VITALS (114 sets, daily range): BP systolic 79–152; BP diastolic 32–132; PULSE 62–120; RESP 12–29; TEMP 36.55848–37.05852; O2SAT 98–100
[2025-01-15] MEDS: PHENYLEPHRINE 100 MG in DEXT 5% WATER 240 ML IV PRN ×2 (01:57→11:37)
[2025-01-15 05:58] LABS: HEMATOCRIT 23.4 % (36.0-48.0); HEMOGLOBIN 7.1 g/dL (12.0-16.0); MEAN CORPUSCULAR HEMOGLOBIN 29.2 pg (28.0-32.0); MEAN CORPUSCULAR HGB CONC 30.1 g/dL (31.0-37.0); PLATELET 95 x1000/uL (130-400); RED BLOOD CELL COUNT 2.42 mill/uL (4.2-5.4); RED CELL DISTRIBUTION WIDTH 19.6 % (11.6-14.6)
[2025-01-15 06:11] LABS: CALCIUM 9.1 mg/dL (8.7-10.4); CARBON DIOXIDE 23 mEq/L (21-32); CHLORIDE 106 mEq/L (98-107); POTASSIUM 3.5 mEq/L (3.5-5.1); SODIUM 142 mEq/L (136-145)
[2025-01-15 06:15] LABS: CREATININE 2.5 mg/dL (0.6-1.0)
[2025-01-15 06:16] LABS: GLUCOSE 173 mg/dL (70-105)
[2025-01-15 06:17] LABS: TRIGLYCERIDE 47 mg/dL (0-150); UREA NITROGEN BLOOD 57 mg/dL (9-23)
[2025-01-15 06:18] LABS: LACTATE DEHYDROGENASE 310 IU/L (120-246); PHOSPHORUS 2.2 mg/dL (2.5-4.9)
[2025-01-15 06:49] LABS: WHITE BLOOD COUNT 50.1 x1000/uL (4.5-11.0)
[2025-01-15] MEDS ORDERED: DIATR MEGLU/DIATRIZOATE SOLN 30ML PO NR (13:00)
[2025-01-15 13:52] LABS: BG BASE EXCESS -3.8 mmol/L (-2.0-3.0); BG CARBOXYHEMOGLOBIN 0.3 % (0.5-1.5); BG DEOXYHEMOGLOBIN 0.9 % (0.0-5.0); BG FRACTION INSPIRED OXYGEN 35; BG HCO3 ACT 21.6 mmol/L (21.0-28.0); BG OXYGEN SATURATION 99.1 % (94.0-98.0); BG OXYHEMOGLOBIN 98.8 % (94.0-98.0); BG PCO2 41.3 mmHg (32.0-45.0); BG PH 7.337 (7.350-7.450); BG PO2 133.7 mmHg (83.0-108.0); BG SAMPLE SITE RIGHT BRACHIAL; BG TOTAL HEMOGLOBIN 6.1 g/dL (12.0-16.0); BG VENT MODE ROOM AIR
[2025-01-15] MEDS: AMIODARONE 360MG/200ML 200 ML IV SCH (14:51)
[2025-01-15 23:22] LABS: BG BASE EXCESS -5.8 mmol/L (-2.0-3.0); BG CARBOXYHEMOGLOBIN 0.6 % (0.5-1.5); BG DEOXYHEMOGLOBIN 1.4 % (0.0-5.0); BG FRACTION INSPIRED OXYGEN 35; BG HCO3 ACT 20.2 mmol/L (21.0-28.0); BG METHEMOGLOBIN 0.6 % (0.5-1.5); BG OXYGEN SATURATION 98.6 % (94.0-98.0); BG OXYHEMOGLOBIN 97.4 % (94.0-98.0); BG PO2 117.4 mmHg (83.0-108.0); BG SAMPLE SITE LEFT RADIAL; BG TOTAL HEMOGLOBIN 8.8 g/dL (12.0-16.0); BG VENT MODE VENT - SIMV
[2025-01-15 23:36] LABS: HEMOGLOBIN 7.1 g/dL (12.0-16.0)
[2025-01-16] VITALS (110 sets, daily range): BP systolic 58–125; BP diastolic 19–96; PULSE 66–106; RESP 13–37; TEMP 36.3–37.2; O2SAT 98–100
[2025-01-16 00:22] LABS: INR 1.8; PROTHROMBIN TIME 18.3 sec (9.6-11.0)
[2025-01-16 04:47] LABS: BG BASE EXCESS -5.4 mmol/L (-2.0-3.0); BG CARBOXYHEMOGLOBIN 1.1 % (0.5-1.5); BG DEOXYHEMOGLOBIN 0.6 % (0.0-5.0); BG FRACTION INSPIRED OXYGEN 35; BG HCO3 ACT 17.2 mmol/L (21.0-28.0); BG METHEMOGLOBIN 0.8 % (0.5-1.5); BG OXYGEN SATURATION 99.4 % (94.0-98.0); BG OXYHEMOGLOBIN 97.5 % (94.0-98.0); BG PCO2 23.2 mmHg (32.0-45.0); BG PH 7.487 (7.350-7.450); BG PO2 176.3 mmHg (83.0-108.0); BG SAMPLE SITE LEFT RADIAL; BG TOTAL HEMOGLOBIN 7.7 g/dL (12.0-16.0); BG VENT MODE VENT - SIMV
[2025-01-16 06:16] LABS: CALCIUM 9.6 mg/dL (8.7-10.4); CARBON DIOXIDE 20 mEq/L (21-32); CHLORIDE 106 mEq/L (98-107); POTASSIUM 3.1 mEq/L (3.5-5.1); SODIUM 140 mEq/L (136-145)
[2025-01-16 06:21] LABS: CREATININE 2.7 mg/dL (0.6-1.0); GLUCOSE 114 mg/dL (70-105)
[2025-01-16 06:22] LABS: UREA NITROGEN BLOOD 63 mg/dL (9-23)
[2025-01-16 06:24] LABS: PHOSPHORUS 1.9 mg/dL (2.5-4.9)
[2025-01-16 06:59] LABS: HEMATOCRIT. 22.4 % (36.0-48.0); HEMOGLOBIN. 7.2 g/dL (12.0-16.0); MEAN CORPUSCULAR HEMOGLOBIN 27.5 pg (28.0-32.0); MEAN CORPUSCULAR HGB CONC 32.1 g/dL (31.0-37.0); MEAN CORPUSCULAR VOLUME 85.8 fL (81.0-99.0); MEAN PLATELET VOLUME 10.4 fl (7.4-10.4); PLATELET 68 x1000/uL (130-400); RED BLOOD CELL COUNT 2.61 mill/uL (4.2-5.4); RED CELL DISTRIBUTION WIDTH 23.6 % (11.6-14.6); WHITE BLOOD COUNT 33.1 x1000/uL (4.5-11.0)
[2025-01-16 07:10] LABS: DIFFERENTIAL COMMENT 1
[2025-01-16] MEDS: POTASSIUM PHOSPHATE 30 MMOL in SODIUM CHLORIDE 0.9% 490 ML IV NR (10:31)
[2025-01-16 12:32] LABS: ANISOCYTOSIS 2+; PLATELET ESTIMATE DECREASED
[2025-01-16] MEDS: MENTHOL/LANOLIN/CALAMINE/ZN OX OINT 71GM TOP SCH (12:57)
[2025-01-17] VITALS (83 sets, daily range): BP systolic 41–134; BP diastolic 22–107; PULSE 0–110; RESP 0–55; TEMP 35.6–36.6; O2SAT 99–100
[2025-01-17 06:08] LABS: HEMOGLOBIN 8.1 g/dL (12.0-16.0); MEAN CORPUSCULAR HEMOGLOBIN 27.5 pg (28.0-32.0); MEAN CORPUSCULAR HGB CONC 32.2 g/dL (31.0-37.0); MEAN CORPUSCULAR VOLUME 85.4 fL (81.0-99.0); RED BLOOD CELL COUNT 2.93 mill/uL (4.2-5.4); RED CELL DISTRIBUTION WIDTH 23.8 % (11.6-14.6); WHITE BLOOD COUNT 29.4 x1000/uL (4.5-11.0)
[2025-01-17 06:23] LABS: POTASSIUM 3.6 mEq/L (3.5-5.1)
[2025-01-17 06:24] LABS: CALCIUM 9.1 mg/dL (8.7-10.4)
[2025-01-17 06:29] LABS: CREATININE 2.9 mg/dL (0.6-1.0)
[2025-01-17 11:11] LABS: PLATELET 104 x1000/uL (130-400)
[2025-01-17] MEDS ORDERED: LORAZEPAM 2MG/ML INJ IV PRN (11:45)
[2025-01-17] MEDS: LORAZEPAM 2MG/ML UD SYRINGE IV PRN (12:25)
[2025-01-17] MEDS ORDERED: MORPHINE SULFATE/PF 1 MG/ML 100 MG in BAG 1 EACH IV PRN (12:30)
[2025-01-17] MEDS: MORPHINE (DRIP)100 MG in DEXT 5% WATER 100 ML IV PRN (12:32)
[2025-01-17] MEDS: MORPHINE SULFATE 250 MG in DEXT 5% WATER 250 ML IV PRN (18:21)
== END 2025-01-17 22:26 | DRG 870 ==
LOC: ER 19:05 → EDBEDREQDT 01-01 03:57 → EDBEDREQTM 01-01 03:57 → EDBEDREQSVC 01-01 03:57 → 5EST 01-01 20:32 → MICUNO 01-04 01:50 → 5EST 01-05 14:21 → MICUSO 01-08 02:00
PROVIDERS: ADMIT Hospitalist; ATTEND Hospitalist
PROC: 5A09357 Assistance with Respiratory Ventilation, Less than 24 Consecutive Hours, Continuous Positive Airway Pressure (ICD-10-PCS; 2025-01-01)
PROC: 0W993ZZ Drainage of Right Pleural Cavity, Percutaneous Approach (ICD-10-PCS; 2025-01-03)
PROC: 5A09357 Assistance with Respiratory Ventilation, Less than 24 Consecutive Hours, Continuous Positive Airway Pressure (ICD-10-PCS; 2025-01-04)
PROC: 5A09457 Assistance with Respiratory Ventilation, 24-96 Consecutive Hours, Continuous Positive Airway Pressure (ICD-10-PCS; 2025-01-04)
PROC: 5A09457 Assistance with Respiratory Ventilation, 24-96 Consecutive Hours, Continuous Positive Airway Pressure (ICD-10-PCS; 2025-01-06)
PROC: 05H533Z Insertion of Infusion Device into Right Subclavian Vein, Percutaneous Approach (ICD-10-PCS; 2025-01-07)
PROC: B546ZZA Ultrasonography of Right Subclavian Vein, Guidance (ICD-10-PCS; 2025-01-07)
PROC: 5A09457 Assistance with Respiratory Ventilation, 24-96 Consecutive Hours, Continuous Positive Airway Pressure (ICD-10-PCS; 2025-01-07)
PROC: 30233N1 Transfusion of Nonautologous Red Blood Cells into Peripheral Vein, Percutaneous Approach (ICD-10-PCS; 2025-01-07)
PROC: 02HV33Z Insertion of Infusion Device into Superior Vena Cava, Percutaneous Approach (ICD-10-PCS; 2025-01-08)
PROC: B548ZZA Ultrasonography of Superior Vena Cava, Guidance (ICD-10-PCS; 2025-01-08)
PROC: 5A09357 Assistance with Respiratory Ventilation, Less than 24 Consecutive Hours, Continuous Positive Airway Pressure (ICD-10-PCS; 2025-01-09)
PROC: 5A09457 Assistance with Respiratory Ventilation, 24-96 Consecutive Hours, Continuous Positive Airway Pressure (ICD-10-PCS; 2025-01-10)
PROC: 5A1955Z Respiratory Ventilation, Greater than 96 Consecutive Hours (ICD-10-PCS; principal; 2025-01-12)
PROC: 0BH17EZ Insertion of Endotracheal Airway into Trachea, Via Natural or Artificial Opening (ICD-10-PCS; 2025-01-12)
PROC: 06HY33Z Insertion of Infusion Device into Lower Vein, Percutaneous Approach (ICD-10-PCS; 2025-01-12)
PROC: B54BZZA Ultrasonography of Right Lower Extremity Veins, Guidance (ICD-10-PCS; 2025-01-12)
PROC: 5A1D70Z Performance of Urinary Filtration, Intermittent, Less than 6 Hours Per Day (ICD-10-PCS; 2025-01-12)
PROC: 5A1D70Z Performance of Urinary Filtration, Intermittent, Less than 6 Hours Per Day (ICD-10-PCS; 2025-01-14)
PROC: 5A1D70Z Performance of Urinary Filtration, Intermittent, Less than 6 Hours Per Day (ICD-10-PCS; 2025-01-16)
DX: A41.9 Sepsis, unspecified organism (principal); E43 Unspecified severe protein-calorie malnutrition; L89.154 Pressure ulcer of sacral region, stage 4; J96.22 Acute and chronic respiratory failure with hypercapnia; J96.21 Acute and chronic respiratory failure with hypoxia; J18.9 Pneumonia, unspecified organism; N17.0 Acute kidney failure with tubular necrosis; R65.21 Severe sepsis with septic shock; R53.2 Functional quadriplegia; G93.41 Metabolic encephalopathy; I50.43 Acute on chronic combined systolic (congestive) and diastolic (congestive) heart failure; J44.1 Chronic obstructive pulmonary disease with (acute) exacerbation; E87.4 Mixed disorder of acid-base balance; I69.359 Hemiplegia and hemiparesis following cerebral infarction affecting unspecified side; E66.2 Morbid (severe) obesity with alveolar hypoventilation; L03.116 Cellulitis of left lower limb; J44.0 Chronic obstructive pulmonary disease with (acute) lower respiratory infection; E87.1 Hypo-osmolality and hyponatremia; N39.0 Urinary tract infection, site not specified; K92.2 Gastrointestinal hemorrhage, unspecified; G45.9 Transient cerebral ischemic attack, unspecified; T82.838A Hemorrhage due to vascular prosthetic devices, implants and grafts, initial encounter; E78.5 Hyperlipidemia, unspecified; I11.0 Hypertensive heart disease with heart failure; E11.9 Type 2 diabetes mellitus without complications; R62.7 Adult failure to thrive; I48.0 Paroxysmal atrial fibrillation; D25.9 Leiomyoma of uterus, unspecified; D63.8 Anemia in other chronic diseases classified elsewhere; D69.2 Other nonthrombocytopenic purpura; E11.65 Type 2 diabetes mellitus with hyperglycemia; E53.8 Deficiency of other specified B group vitamins; Z66 Do not resuscitate; S80.12XA Contusion of left lower leg, initial encounter; R57.1 Hypovolemic shock; K21.9 Gastro-esophageal reflux disease without esophagitis; E03.8 Other specified hypothyroidism; F20.9 Schizophrenia, unspecified; I25.10 Atherosclerotic heart disease of native coronary artery without angina pectoris; I34.0 Nonrheumatic mitral (valve) insufficiency; D69.6 Thrombocytopenia, unspecified; Y83.8 Other surgical procedures as the cause of abnormal reaction of the patient, or of later complication, without mention of misadventure at the time of the procedure; Y92.238 Other place in hospital as the place of occurrence of the external cause; E83.42 Hypomagnesemia; Z99.81 Dependence on supplemental oxygen; Z68.29 Body mass index [BMI] 29.0-29.9, adult; Z93.3 Colostomy status; Z91.81 History of falling; Z90.49 Acquired absence of other specified parts of digestive tract; Z87.440 Personal history of urinary (tract) infections; Z87.39 Personal history of other diseases of the musculoskeletal system and connective tissue; Z87.01 Personal history of pneumonia (recurrent); Z79.899 Other long term (current) drug therapy; Z79.84 Long term (current) use of oral hypoglycemic drugs; Z79.82 Long term (current) use of aspirin; Z79.4 Long term (current) use of insulin; Z79.02 Long term (current) use of antithrombotics/antiplatelets; Z68.35 Body mass index [BMI] 35.0-35.9, adult
CPT/HCPCS: 31720; 32555; 36415; 36556; 36573; 36600; 70496; 71045; 74018; 76604; 76770; 76937; 80048; 80053; 80061; 80076; 80202; 81003; 82140; 82306; 82375; 82550; 82607; 82668; 82728; 82746; 82784; 82805; 82962; 83036; 83540; 83550; 83605; 83615; 83735; 83880; 83986; 84100; 84134; 84145; 84439; 84443; 84478; 84484; 85014; 85018; 85025; 85027; 85044; 85049; 85240; 85379; 85384; 86334; 86705; 86709; 86850; 86880; 86900; 86920; 87070; 87340; 90935; 93005; 93923; 93970; 94002; 94003; 94070; 94640; 94660; 94664; 94760; 96361; 96365; 96367; 96372; 96375; 97162; 97166; 98960; 99285; A4606; A6261; C1725; C1752; C1769; J0282; J0456; J0692; J0696; J1644; J1650; J1815; J1940; J2003; J2060; J2185; J2270; J2371; J2470; J2543; J2704; J2720; J2919; J3370; J3475; J3490; J7030; J7040; J7042; J7050; J7060; J7626; P9016; P9041; P9047; Q9963; Q9967